=== PATIENT | female | born 1990 | race Caucasian/White ===

== ENCOUNTER 2019-04-27 03:58 | Inpatient (IN) ==
[2019-04-27] MEDS ORDERED: Famotidine 20 MG/2 ML VIAL IVP PRN (04:04)
[2019-04-27] MEDS ORDERED: Lidocaine 1% 20 ML MDV INFILT PRN (04:04)
[2019-04-27] MEDS ORDERED: Naloxone 0.4 MG/ML INJ IVP PRN (04:04)
[2019-04-27] MEDS ORDERED: Metoclopramide 10 MG/2 ML VIAL IVP PRN (04:04)
[2019-04-27] MEDS ORDERED: *HR* Nalbuphine 10 MG/ML AMPUL IVP PRN (04:04)
[2019-04-27] MEDS ORDERED: miSOPROStoL 25 MCG TABLET VG PRN (04:14)
[2019-04-27] MEDS ORDERED: Ringers Solution, Lactated 1,000 ML IVC SCH (04:15)
[2019-04-27 05:17] LABS: Basophils % 0.4 %; Eosinophils # 0.2 K/mcL (0.0-0.6); Eosinophils % 2.2 %; Hematocrit 33.4 % (35.3-44.9); Hemoglobin 11.8 g/dL (11.5-15.4); Lymphocytes # 2.3 K/mcL (0.6-4.6); Lymphocytes % 22.4 %; Mean Corpuscular HGB Conc 35.3 g/dL (31.6-35.5); Mean Corpuscular Hemoglobin 31.6 pg (28.0-33.3); Mean Corpuscular Volume 89.5 fL (83.0-100.0); Monocytes # 0.6 K/mcL (0.0-1.3); Monocytes % 6.1 %; Platelet Count 168 K/mcL (140-400); Red Blood Count 3.73 M/mcL (3.82-4.97); Red Cell Distribution Width 13.3 % (11.5-14.5); Segmented Neutrophils % 67.9 %; White Blood Count 10.2 K/mcL (4.3-11.1)
[2019-04-27 05:27] LABS: Amphetamine Screen,Urine Negative ng/mL (Cutoff=1000); Barbiturate Screen,Urine Negative ng/mL (Cutoff=200); Benzodiazepines Screen,Urine Negative ng/mL (Cutoff=200); Cannabinoid Screen,Urine Negative ng/mL (Cutoff = 50); Cocaine Screen,Urine Negative ng/mL (Cutoff= 300); Opiate Screen,Urine Negative ng/mL (Cutoff=300); Phencyclidine Screen,Urine Negative ng/mL (Cutoff=25)
[2019-04-27] MEDS ORDERED: Epidural Premix (fent/bupiv) 110 ML EP SCH (08:00)
[2019-04-27] MEDS ORDERED: EPINEPHrine 1 MG/ML VIAL ONE (12:45)
[2019-04-27] MEDS ORDERED: Ondansetron 4 MG/2 ML VIAL ONE (12:49)
[2019-04-27] MEDS ORDERED: Oxytocin 20 units/ LR 1000 mL 20 UNIT/1,000 ML BAG IVC SCH ×2 (14:15→18:36)
[2019-04-27] MEDS ORDERED: Measles/Mumps/Rubella Vacc 0.5 ML VIAL SQ PRN (18:36)
[2019-04-27] MEDS ORDERED: Rho Immune Globulin 1,500 UNIT SYRINGE IM PRN (18:36)
[2019-04-27] MEDS ORDERED: Acetaminophen 325 MG TABLET PO PRN (18:36)
[2019-04-27] MEDS: Ibuprofen 600 MG TABLET PO PRN (21:53)
[2019-04-27] MEDS ORDERED: Benzocaine/Menthol 56 GM AEROSOL SPRAY TP PRN (21:55)
[2019-04-28] MEDS: Ibuprofen 600 MG TABLET PO PRN ×2 (04:41→14:40)
[2019-04-28 07:51] LABS: Basophils % 0.1 %; Eosinophils # 0.2 K/mcL (0.0-0.6); Eosinophils % 2.1 %; Hematocrit 26.7 % (35.3-44.9); Immature Granulocytes % 1.3 % (0-4); Lymphocytes % 22.2 %; Mean Corpuscular HGB Conc 34.5 g/dL (31.6-35.5); Mean Corpuscular Hemoglobin 31.5 pg (28.0-33.3); Mean Corpuscular Volume 91.4 fL (83.0-100.0); Mean Platelet Volume 11.1 fL (9.4-12.4); Monocytes # 0.6 K/mcL (0.0-1.3); Monocytes % 6.8 %; Neutrophils # 6.2 K/mcL (1.6-8.9); Platelet Count 135 K/mcL (140-400); Red Blood Count 2.92 M/mcL (3.82-4.97); Red Cell Distribution Width 13.5 % (11.5-14.5); Segmented Neutrophils % 67.5 %; White Blood Count 9.2 K/mcL (4.3-11.1)
[2019-04-28 07:54] LABS: Hemoglobin 9.2 g/dL (11.5-15.4)
[2019-04-28] MEDS ORDERED: Prenatal Vit/FA 1 EACH TABLET PO SCH (09:00)
[2019-04-28] MEDS ORDERED: Lidocaine/EPI 1:100k 1% 30 ML VIAL INFILT ONE (13:53)
[2019-04-28] MEDS ORDERED: Etonogestrel 68 MG IMPLANT IL ONE (13:53)
[2019-04-28 16:06] VITALS: BP 115/69
== END 2019-04-28 18:19 | disposition home or self-care (01) | DRG 806 ==
LOC: 1NENULAB 03:58 → 1NENUOBS 19:47
PROVIDERS: ADMIT Student in an Organized Health Care Education/Training Program; ATTEND Student in an Organized Health Care Education/Training Program